=== PATIENT | female | born 1990 | race Caucasian/White ===

== ENCOUNTER 2024-02-12 21:46 | Emergency (ER) | payer SELFPAY ==
[2024-02-12 22:08] VITALS: TEMP 98.4
[2024-02-12] MEDS ORDERED: Compazine 10 MG/2 ML ONE (22:09)
[2024-02-12] MEDS ORDERED: Sodium Chloride 0.9% 1000 ML 1,000 ML ONE (22:09)
[2024-02-12] MEDS ORDERED: TORAdol 30 mg Injection ONE (22:09)
[2024-02-12 22:10] LABS: Absolute Neutrophil Ct (ANC) 6.12 x10^3/uL (1.56-6.13); BASOPHIL % 0.3 % (0.1-1.2); Basophil (Absolute #) 0.03 x10^3/uL (0.01-0.08); Eosinophil % 1.5 % (0.7-5.8); Eosinophil (Absolute #) 0.13 x10^3/uL (0.04-0.36); Hematocrit 41.3 % (34.1-44.9); Hemoglobin 13.5 g/dL (11.2-15.7); IMMATURE GRAN # 0.03 x10^3u/L (0.001-0.031); IMMATURE GRAN % 0.3 % (0.001-0.429); Lymphocyte (Absolute #) 1.75 x10^3/uL (1.18-3.74); Mean Cell Volume 85.9 fL (79.4-94.8); Mean Corpuscular Hemoglobin 28.1 pg (25.6-32.2); Mean Corpuscular Hgb Concent. 32.7 g/dL (32.2-35.5); Mean Platelet Volume 9.4 fL (9.4-12.3); Monocyte (Absolute #) 0.68 x10^3/uL (0.24-0.86); Monocytes % 7.8 % (4.7-12.5); Neutrophil % 70.1 % (34.0-71.1); Platelet Count 380 x10^3/uL (182-369); Red Blood Count 4.81 x10^6/uL (3.93-5.22); Red Cell Distribution Width 13.7 % (11.7-14.4); White Blood Count 8.7 x10^3/uL (3.98-10.04)
[2024-02-12] MEDS: Sodium Chloride 0.9% 1000 ML 1,000 ML IV STA (22:12)
[2024-02-12] MEDS: TORAdol 30 mg Injection IV ONE (22:14)
[2024-02-12] MEDS: Compazine 10 MG/2 ML IV ONE (22:15)
[2024-02-12 22:19] LABS: ALBUMIN 4.3 g/dL (3.5-5.0); ANION GAP 15.2 MEQ/L (5-15); BILIRUBIN,TOTAL 0.4 mg/dL (0.2-1.3); Calcium 9.1 mg/dL (8.4-10.2); Creatinine 1 0.55 mg/dL (0.52-1.04); EST GLOMERULAR FILTRATION RATE 124.8 ML/MIN; Potassium 3.7 mmol/L (3.5-5.1); Total Protein 7.2 g/dL (6.3-8.2)
[2024-02-12 22:23] LABS: HCG SERUM TEST NEGATIVE (NEGATIVE)
[2024-02-12 23:07] VITALS: BP 122/75; PULSE 67; RESP 12; O2SAT 98
--- NOTE | 2024-02-12 23:15 | ERPHSYRPT ---
- History of Present Illness Time Seen by Provider: 02/12/24 21:55 Source: patient Exam Limitations: no limitations Patient Subjective Stated Complaint: c/o of migraine Triage Nursing Assessment: patient brought to ED by jae with c/o of migr loree rated 6/10. Patient stated that she has a history of seizures and 4 seizures today. Proceeded by an aura, wakes up confused and sore. Patient also stated that she has tingling down the left side of her face. Patient's vitals wnl, skin w/n/d, pulses normal, brought in by wheelchair, patient doesn't appear to be in any distress at this time. Physician History: 33-year-old female history of seizure currently not on seizure medications presents to our ED for evaluation of a migraine headache. Patient reports for seizures associated with her headache. Patient's headache is global. Patient reports some tingling to her left face. No focal or lateralizing symptoms otherwise. No neck pain. Cervical spine cleared clinically. No tongue biting. No urinary or stool incontinence. No associated chest pain or shortness of breath. No nausea vomiting or diaphoresis. Patient states she otherwise feels well. She voices no other complaints or concerns at this time. Portions of this note were created with voice recognition technology. There may be grammatical, spelling, punctuation or sound alike errors Timing/Duration: today Severity: moderate Associated Symptoms: denies symptoms, vomiting Allergies/Adverse Reactions: diphenhydramine [From Benadryl] Adverse Reaction (Verified 02/12/24 22:08) Hx Tetanus, Diphtheria Vaccination/Date Given: Yes Hx Influenza Vaccination/Date Given: No Hx Pneumococcal Vaccination/Date Given: No Travel Risk - International Travel Have you traveled outside of the country in past 3 weeks: No - Emerging Infectious Disease Are you exhibiting symptoms associated with any current EIDs: No - Review of Systems Constitutional: No Symptoms, No Fever, No Chills Eyes: No Symptoms Ears, Nose, & Throat: No Symptoms Respiratory: No Symptoms, No Cough, No Dyspnea Cardiac: No Symptoms, No Chest Pain, No Edema, No Syncope Abdominal/Gastrointestinal: No Symptoms, No Abdominal Pain, No Nausea, No Vomiting, No Diarrhea Genitourinary Symptoms: No Symptoms, No Dysuria Musculoskeletal: No Symptoms, No Back Pain, No Neck Pain Skin: No Symptoms, No Rash Neurological: No Symptoms, No Dizziness, No Focal Weakness, No Sensory Changes Psychological: No Symptoms Endocrine: No Symptoms Hematologic/Lymphatic: No Symptoms Immunological/Allergic: No Symptoms All Other Systems: Reviewed and Negative - Past Medical History Pertinent Past Medical History: Yes Neurological History: Migraines, Seizures ENT History: No Pertinent History Cardiac History: No Pertinent History Respiratory History: No Pertinent History Endocrine Medical History: Other Musculoskeletal History: No Pertinent History GI Medical History: No Pertinent History History: No Pertinent History Psycho-Social History: No Pertinent History Female Reproductive Disorders: No Pertinent History Other Medical History: GESTATIONAL DIABETES - Past Surgical History Past Surgical History: Yes Neuro Surgical History: No Pertinent History Cardiac: No Pertinent History Respiratory: No Pertinent History Gastrointestinal: No Pertinent History Genitourinary: No Pertinent History Female Surgical History: Section Other Surgical History: MISCARRIAGE IN AUGUST - Female History Hx Last Menstrual Period: a week ago Hx Now: No - Social History Smoking Status: Never smoker Exposure to second hand smoke: No Drug Use: marijuana - Social Determinants of Health Will the patient participate in the screening: Yes Do you worry about a steady place to live?: No Do you have any problems with any of the following?: No known problems In the past 12 months,have you had to go without utilities?: No Transportation Issues: No Has anyone in your support network made you feel unsafe?: No Have you or anyone in your house had to go without enough: No - Nursing Vital Signs Nursing Vital Signs: Initial Vital Signs Temperature 98.4 F 02/12/24 21:51 Pulse Rate 75 02/12/24 21:51 Respiratory Rate 16 02/12/24 21:51 Blood Pressure 134/89 02/12/24 21:51 O2 Sat by Pulse Oximetry 100 02/12/24 21:51 Pain Scale Pain Intensity 6 - Physical Exam General Appearance: no apparent distress, alert Eye Exam: PERRL/EOMI, eyes nml inspection Ears, Nose, Throat Exam: normal ENT inspection, TMs normal, pharynx normal, m oist mucous membranes Neck Exam: normal inspection, non-tender, supple, full range of motion Respiratory Exam: normal breath sounds, lungs clear, airway intact, No respiratory distress Cardiovascular Exam: regular rate/rhythm, normal heart sounds, normal peripheral pulses Gastrointestinal/Abdomen Exam: soft, normal bowel sounds, No tenderness, No mass Back Exam: normal inspection, normal range of motion, No CVA tenderness, No vertebral tenderness Extremity Exam: normal inspection, normal range of motion, pelvis stable Neurologic Exam: alert, oriented x 3, cooperative, blankbook forwarder II-XII nml as tested, normal mood/affect, nml cerebellar function, nml station & gait, sensation nml, No motor deficits Skin Exam: normal color, warm, dry, No rash Lymphatic Exam: No adenopathy SpO2 Interpretation: normal SpO2: 98 O2 Delivery: Room Air - Course Nursing assessment & vital signs reviewed: Yes - CT Exams Head CT Interpretation: Tele-radiologist Report (No acute intracranial pathology) Ordered Tests: Active Orders 24 hr Category Date Time Status Flue Gas Analyst STAT Care 02/12/24 22:03 Active IV Insertion STAT Care 02/12/24 22:03 Active Pulse Oximetry (ED) STAT Care 02/12/24 22:03 Active Tele-Health Consult ROUTINE Cons 02/12/24 22:04 Active HEAD WITHOUT CONTRAST [CT] Stat Exams 02/12/24 22:03 Completed CBC W DIFF Stat Lab 02/12/24 21:55 Completed CMP Stat Lab 02/12/24 21:55 Completed HCG QUALITATIVE, SERUM Stat Lab 02/12/24 21:55 Completed MAGNESIUM Stat Lab 02/12/24 21:55 Completed Medication Summary Discontinued Medications Generic Name Dose Route Start Last Admin Trade Name Freq PRN Reason Stop Dose Admin Sodium Chloride 1,000 mls @ 999 mls/hr 02/12/24 22:03 02/12/24 23:13 Sodium Chloride 0.9% 1000 Ml IV 02/12/24 23:03 Infused .Q1H1M STA Infusion Sodium Chloride Confirm 02/12/24 22:09 Sodium Chloride 0.9% 1000 Ml Administered 02/12/24 22:10 Dose 1,000 mls @ ud .ROUTE .STK-MED ONE Ketorolac Tromethamine 30 mg 02/12/24 22:03 02/12/24 22:14 Ketorolac Tromethamine 30 Mg/Ml Inj IV 02/12/24 22:04 30 mg STAT ONE Administration Ketorolac Tromethamine Confirm 02/12/24 22:09 Ketorolac Tromethamine 30 Mg/Ml Inj Administered 02/12/24 22:10 Dose 30 mg .ROUTE .STK-MED ONE Prochlorperazine Edisylate 10 mg 02/12/24 22:03 02/12/24 22:15 Prochlorperazine Edisylate 10 Mg/2 Ml Vial IV 02/12/24 22:04 10 mg STAT ONE Administration Prochlorperazine Edisylate Confirm 02/12/24 22:09 Prochlorperazine Edisylate 10 Mg/2 Ml Vial Administered 02/12/24 22:10 Dose 10 mg .ROUTE .STK-MED ONE Lab/Rad Data: Laboratory Result Diagrams 02/12/24 21:55 02/12/24 21:55 Laboratory Results 02/12/24 02/12/24 02/12/24 Range/Units 21:55 21:55 21:55 WBC 8.7 (3.98-10.04) x10^3/uL RBC 4.81 (3.93-5.22) x10^6/uL Hgb 13.5 (11.2-15.7) g/dL Hct 41.3 (34.1-44.9) % MCV 85.9 (79.4-94.8) fL MCH 28.1 (25.6-32.2) pg MCHC 32.7 (32.2-35.5) g/dL RDW 13.7 (11.7-14.4) % Plt Count 380 H (182-369) x10^3/uL MPV 9.4 (9.4-12.3) fL Gran % 70.1 (34.0-71.1) % Immature Gran % (Auto) 0.3 (0.001-0.429) % Nucleat RBC Rel Count 0.0 (0.00-0.2) % Eos # (Auto) 0.13 (0.04-0.36) x10^3/uL Immature Gran # (Auto) 0.03 (0.001-0.031) x10^3u/L Absolute Lymphs (auto) 1.75 (1.18-3.74) x10^3/uL Absolute Monos (auto) 0.68 (0.24-0.86) x10^3/uL Absolute Nucleated RBC 0.00 (0.00-0.012) x10^3u/L Lymphocytes % 20.0 (19.3-51.7) % Monocytes % 7.8 (4.7-12.5) % Eosinophils % 1.5 (0.7-5.8) % Basophils % 0.3 (0.1-1.2) % Absolute Granulocytes 6.12 (1.56-6.13) x10^3/uL Basophils # 0.03 (0.01-0.08) x10^3/uL Sodium 140 (135-145) mmol/L Potassium 3.7 (3.5-5.1) mmol/L Chloride 108 H (98-107) mmol/L Carbon Dioxide 21 L (22-30) mmol/L Anion Gap 15.2 H (5-15) MEQ/L BUN 8 (7-17) mg/dL Creatinine 0.55 (0.52-1.04) mg/dL Estimated GFR 124.8 ML/MIN Glucose 115 H (74-106) mg/dL Calcium 9.1 (8.4-10.2) mg/dL Magnesium 2.0 (1.6-2.3) mg/dL Total Bilirubin 0.40 (0.2-1.3) mg/dL AST 31 (14-36) U/L ALT 36 H (0-35) U/L Alkaline Phosphatase 62 (38-126) U/L Serum Total Protein 7.2 (6.3-8.2) g/dL Albumin 4.3 (3.5-5.0) g/dL Serum HCG, Qual NEGATIVE (NEGATIVE) - Progress Progress: improved Progress Note: 33-year-old female presents to our ED for evaluation of migraine headache numbness to her left face and reported seizure. CT head negative for acute intracranial pathology. Laboratory workup unremarkable. Teleneuro consultation does not feel patient is experiencing seizures. He does not recommend seizure prophylaxis or seizure medication. However he does recommend Topamax for migraine headache. He advised Topamax 25 mg twice a day. He advised patient follow-up with her primary care doctor for further evaluation and treatment. Patient reassessed. Headache resolved. Patient currently asymptomatic. Facial numbness resolved. No seizure activity while in our ED. Vital stable. No indication for further workup. Patient states she is ready for discharge. She voices no other complaints or concerns at this time. Portions of this note were created with voice recognition technology. There may be grammatical, spelling, punctuation or sound alike errors Complexity of problem addressed is moderate acute complicated. No critical care time. Complex of data reviewed and analyzed is extensive. Test ordered chest reviewed results analyzed and correlated clinically with history and physical examination. Management discussed with hospitalist at 11:14 PM. Risk of complication and or risk of morbidity/mortality of patient management is moderate. A prescription for Topamax forwarded to patient's pharmacy. Vital stable. Time spent to discharge patient approximately 15 minutes. Plan of care established for shared decision making. No social determinants of health present to impede follow-up. Portions of this note were created with voice recognition technology. There may be grammatical, spelling, punctuation or sound alike errors 02/13/24 00:02 Counseled pt/family regarding: lab results, diagnosis, need for follow-up, rad results - Departure Departure Disposition: Home Clinical Impression: Migraine, Thrombocytosis, Medication refill Condition: Stable Critical Care Time: No Referrals: DOCTOR,NO FAMILY [Primary Care Provider] - Follow up/PCP as directed CHERYL MANCINI DO [ACTIVE STAFF] - Follow up/PCP as directed Instructions: Headache, Adult (DC) Additional Instructions: Discharge/Care Plan MESFIN TAYLOR was seen on 02/12/24 in the Emergency Room. The patient was counse led regarding Diagnosis,Lab results, Imaging studies, need for follow up and when to return to the Emergency Room. Prescriptions given: Discharge Note I have spoken with the patient and/or caregivers. I have explained the patient's condition, diagnosis and treatment plan based on the information available to me at this time. I have answered the patient's and/or caregiver's questions and addressed any concerns. The patient and/or caregivers have as good understanding of the patient's diagnosis, condition and treatment plan as can be expected at this point. The vital signs have been stable. The patient's condition is stable and appropriate for discharge from the emergency department. The patient will pursue further outpatient evaluation with the primary care physician or other designated or consulting physician as outlined in the discharge instructions. The patient and/or caregivers are agreeable to this plan of care and follow-up instructions have been explained in detail. The patient and/or caregivers have received these instruction. The patient/and or caregivers are aware that any significant change in condition or worsening of symptoms should prompt an immediate return to this or the closest emergency department or call 911. Prescriptions: Topiramate 25 mg [Topamax 25 MG] 25 mg PO BID 14 Days #28 cap
--- NOTE | 2024-02-12 23:36 | XRAY ---
CLINICAL HISTORY: seizure, TEJEDA COMPARISON: None. TECHNIQUE: An axial non-contrast CT scan of the brain was performed from the skull base to the high parietal region with multiplanar reconstructions. One of the following dose-reduction techniques was utilized for this exam. Automated exposure control, adjustment of the mA and/or kV according to patient size, and use of iterative reconstruction. FINDINGS: The brain parenchyma shows a normal appearance. Valverde-white matter differentiation is maintained. No midline shifts or deformity. No intracerebral or extra axial hematoma. Normal size and configuration of the cerebral ventricles. Normal CT appearance of the posterior fossa structures namely the cerebellar hemispheres, brainstem, and cerebellar peduncles. The bony structures in the skull base are unremarkable. There are no definite calvarium fractures. The scanned paranasal sinuses are clear. IMPRESSION: There is no evidence of intracerebral hemorrhage or established infarction. Advised MRI epilepsy protocol if clinically warranted for further evaluation. Electronically Signed by: Joanne Boles MD. (02/12/2024 23:33:15 EDT)
== END 2024-02-12 23:59 | disposition home or self-care (01) ==
LOC: ED 21:46
DX: G43.909 Migraine, unspecified, not intractable, without status migrainosus (principal); D75.839 Thrombocytosis, unspecified; Z76.0 Encounter for issue of repeat prescription; R56.9 Unspecified convulsions; Z79.899 Other long term (current) drug therapy
CPT/HCPCS: 36000; 36415; 70450; 80053; 83735; 84703; 85025; 93041; 94760; 96360; 96374; 96375; 99284; Q3014; J1885